=== PATIENT | male | born 1980 | race Two or more races ===

== ENCOUNTER 2016-12-08 19:08 | Emergency (ER) | payer MEDICARE, MEDICAID ==
[~2016-12-08] VITALS: Ht 165.1 cm; Wt 65.8 kg
[~2016-12-08 19:08] MED LIST: ARIP1TAB5 PO; ATOR10TA PO; CEL100T PO; DEXL60CA3 PO; ESZO1TAB9 PO; ITRA200T OR; LOSA50TA6 PO; METH750T3 PO; METO-158 PO; MYCO500T PO; ONDA4TAB5 PO; PANC3600 PO; POTA-167 PO; PRE1T PO; PRISTIQ ER PO; PROGRAF PO; RANI-229 PO; TACR0.5C3 PO; VALG450T PO; [UNRECOGNIZED DRUG - CODE] PO
[2016-12-08] MEDS ORDERED: ONDANSETRON HCL 4 MG/2 ML VIAL IV ONE (20:15)
[2016-12-08] MEDS ORDERED: MORPHINE SULFATE 4 MG/ML SYRG IV ONE (20:15)
[2016-12-08 23:20] VITALS: BP 126/72
== END 2016-12-09 00:20 | disposition home or self-care (01) ==
LOC: ER 19:14
DX: J01.90 Acute sinusitis, unspecified (principal); E11.9 Type 2 diabetes mellitus without complications; K21.9 Gastro-esophageal reflux disease without esophagitis; I10 Essential (primary) hypertension; Z98.890 Other specified postprocedural states
CPT/HCPCS: 70450; 96374; 96375; 99284; J2270; J2405

== ENCOUNTER 2017-11-20 10:20 | Emergency (ER) | payer MEDICARE, MEDICAID ==
[~2017-11-20] VITALS: Ht 165.1 cm; Wt 64.4 kg
[~2017-11-20 10:20] MED LIST changes: +DILT-10 PO; -[UNRECOGNIZED DRUG - CODE] PO
[2017-11-20 10:48] LABS: Urine WBC None Seen /hpf (0 - 3)
[2017-11-20 11:23] LABS: Urine Amorphous Crystal FEW /hpf (None Seen); Urine Bacteria NONE SEEN /hpf (None Seen); Urine Blood Negative /uL (Negative); Urine Specific Gravity 1.017 (1.001-1.035)
[2017-11-20 11:45] LABS: Basophils # (auto) 0.1 uL; Basophils % (auto) 0.6 % (0.0-2.0); Eosinophils # (auto) 0.3 uL; Eosinophils % (auto) 2.9 % (0.0-7.0); Hematocrit 40.2 % (41.0-53.0); Lymphocytes # (auto) 2.7 uL; Lymphocytes % (auto) 27.7 % (10.0-50.0); Mean Corpuscular Hgb Conc. 32.2 g/dL (32.0-36.0); Mean Corpuscular Volume 83.7 fL (80.0-100.0); Monocytes # (auto) 0.4 uL; Monocytes % (auto) 4.5 % (0.0-12.0); Neutrophils # (auto) 6.3 uL; Neutrophils % (auto) 64.3 % (37.0-80.0); Nucleated Red Blood Cells % 0.1 %; Platelet Count (auto) 288 10^3/uL (140-450); Red Blood Cells 4.81 10^6/uL (4.5-5.90); Red Cell Distribution Width 16.5 % (11.8-14.3); White Blood Cell 9.8 10^3/uL (4.4-10.8)
[2017-11-20 11:55] LABS: BUN/Creatinine Ratio 8.9; Bilirubin, Total 0.5 mg/dL (0.2-1.0); Calcium 8.9 mg/dL (8.5-10.1); Total Protein 7.3 g/dL (6.4-8.2)
[2017-11-20 14:10] VITALS: BP 127/85
[2017-11-20] MEDS ORDERED: NALBUPHINE HCL 10 MG/1ml INJECTION IV ONE (15:00)
== END 2017-11-20 16:23 | disposition home or self-care (01) ==
LOC: ER 10:20
DX: E84.9 Cystic fibrosis, unspecified (principal); R10.9 Unspecified abdominal pain; E11.9 Type 2 diabetes mellitus without complications; I10 Essential (primary) hypertension; K21.9 Gastro-esophageal reflux disease without esophagitis; E78.00 Pure hypercholesterolemia, unspecified; Z79.899 Other long term (current) drug therapy; Z94.2 Lung transplant status; Z88.8 Allergy status to other drugs, medicaments and biological substances; Z88.6 Allergy status to analgesic agent
CPT/HCPCS: 36415; 74176; 80053; 81001; 85025; 96374; 99285; J2300

== ENCOUNTER 2020-07-16 04:13 | Inpatient (IN) | payer MEDICARE, MEDICAID ==
[~2020-07-16] VITALS: Ht 165.1 cm; Wt 82.4 kg
[~2020-07-16 04:13] MED LIST changes: -DEXL60CA3 PO; +DEXL60CA4 PO; +LOSA-69 PO; -LOSA50TA6 PO; +ONDA-144 PO; -ONDA4TAB5 PO; -RANI-229 PO; +RANI300T PO
[2020-07-16] MEDS ORDERED: MORPHINE SULFATE 4 MG/ML SYR/VIAL IV ONE (05:45)
[2020-07-16] MEDS ORDERED: SODIUM CHLORIDE 0.9% 1,000 ML IV ONE ×2 (05:45→07:04)
[2020-07-16] MEDS ORDERED: ONDANSETRON HCL 4 MG/2 ML VIAL IV ONE (05:45)
[2020-07-16 05:52] LABS: Urine Bacteria FEW /hpf (None Seen); Urine Blood Negative /uL (Negative); Urine Specific Gravity 1.015 (1.001-1.035); Urine WBC 1 /hpf (0 - 3)
[2020-07-16] MEDS ORDERED: SODIUM CHLORIDE 0.9% 500 ML IVB ONE (07:04)
[2020-07-16] MEDS ORDERED: KETOROLAC TROMETH 30 MG/ML 1ML VIAL IV ONE (07:15)
[2020-07-16] MEDS ORDERED: PROMETHAZINE HCL 25 MG/ML 1ML IV PRN (07:15)
[2020-07-16 07:34] LABS: Basophils # (auto) 0.1 10 ^3/uL (0-0.2); Basophils % (auto) 0.4 % (0.0-2.0); Eosinophils # (auto) 0.2 10 ^3/uL (0-0.8); Eosinophils % (auto) 1.2 % (0.0-7.0); Hematocrit 45.7 % (41.0-53.0); Hemoglobin 15.6 g/dL (13.5-17.5); Lymphocytes # (auto) 2.8 10 ^3/uL (0.4-5.4); Mean Corpuscular Hemoglobin 31.9 pg (28.0-32.0); Mean Corpuscular Hgb Conc. 34.2 g/dL (32.0-36.0); Mean Corpuscular Volume 93.5 fL (80.0-100.0); Monocytes # (auto) 1.1 10 ^3/uL (0-1.3); Monocytes % (auto) 6.7 % (0.0-12.0); Neutrophils # (auto) 11.6 10 ^3/uL (1.6-8.6); Neutrophils % (auto) 73.7 % (37.0-80.0); Platelet Count (auto) 251 10^3/uL (140-450); Red Blood Cells 4.89 10^6/uL (4.5-5.90); White Blood Cell 15.7 10^3/uL (4.4-10.8)
[2020-07-16 07:35] LABS: Albumin 4.1 g/dL (3.4-5.0); BUN/Creatinine Ratio 18.3; Calcium 8.4 mg/dL (8.5-10.1); Potassium 4.3 mmol/L (3.5-5.1)
[2020-07-16 07:37] LABS: Bilirubin, Total 0.4 mg/dL (0.2-1.0)
[2020-07-16] MEDS ORDERED: LORazepam 2MG/ML-1ML VIAL IV ONE (08:15)
[2020-07-16 08:50] LABS: Lipase < 10 U/L (73-393); Magnesium 2.2 mg/dL (1.6-2.6)
[2020-07-16] MEDS ORDERED: NITROGLYCERIN 0.4 MG SL TAB SL PRN ×2 (14:00→15:45)
[2020-07-16] MEDS ORDERED: cefTRIAXone 1GM/50ML D5W 50 ML IV ONE (14:00)
[2020-07-16] MEDS ORDERED: MORPHINE SULF INJ 2 MG/ML SYRINGE 1ML IV PRN ×3 (14:00→15:45)
[2020-07-16] MEDS: cefTRIAXone 1GM/50ML D5W 50 ML IV SCH (14:59)
[2020-07-16] MEDS ORDERED: ALBUTEROL SULF 2.5 MG/0.5ML(0.5%) NEB SOLN NEB PRN (15:30)
[2020-07-16] MEDS ORDERED: IPRATROPIUM BROM 0.5 MG/2.5ML INH SOL NEB PRN (15:30)
[2020-07-16] MEDS ORDERED: SODIUM CHLORIDE 0.9% 1,000 ML IV SCH (15:34)
[2020-07-16] MEDS ORDERED: ALUM & MAG HYDROX-SIMETH LIQ(MAALOX) 30 ML PO PRN (15:45)
[2020-07-16] MEDS ORDERED: ONDANSETRON HCL 4 MG/2 ML VIAL IV PRN (15:45)
[2020-07-16] MEDS ORDERED: LORazepam 0.5 MG TAB PO PRN (15:45)
[2020-07-16] MEDS ORDERED: DOCUSATE SOD 100 MG CAP PO PRN (15:45)
[2020-07-16] MEDS ORDERED: HYDROcodone-ACET 5/325MG TAB PO PRN (15:45)
[2020-07-16] MEDS ORDERED: ACETAMINOPHEN 325 MG TAB PO PRN (15:45)
--- NOTE | 2020-07-16 15:50 | NUR ---
Telemetry admit from [facility] admitted to Telemetry unit after SBAR received. Patient oriented to PREMA GAYLE, RN primary RN, unit, room, bed, and unit policies regarding patient care and visiting hours. Patient now on continuous telemetry monitoring, tele box # 42. Patient weighed by bed scale and encouraged to call if they need anything. All questions and concerns addressed, patient verbalized understanding. VS: 110/77, 115, 95%, 97.9, 16. No complaints of pain or discomfort at this time.
[2020-07-16 16:00] VITALS: BP 110/77
[2020-07-16 16:07] LABS: Cholesterol 111 mg/dL (< 200)
[2020-07-16 16:14] LABS: HDL Cholesterol 47 mg/dL (40-59); LDL Cholesterol 55 mg/dL (< 100); Triglycerides 153 mg/dL (< 150)
--- NOTE | 2020-07-16 16:35 | NUR ---
UNABLE TO COMPLETE MEDICATION RECONCILIATION PATIENT IS UNABLE TO RECALL ALL MEDS AND PATIENT NEXT OF KIN, SHREE, DOES NOT SPEAK BULGARIAN, NOTIFIED THAT THE HOSPITAL NEEDS A LIST OF MEDICATIONS AND SHREE VERBALIZED UNDERSTANDING.
[2020-07-16 16:46] VITALS: BP 110/77
[2020-07-16] MEDS ORDERED: PRAV20TA3 PO (17:32)
[2020-07-16] MEDS ORDERED: TAMS0.4C36 PO (17:32)
[2020-07-16] MEDS ORDERED: RIBO100T8 PO (17:32)
[2020-07-16] MEDS ORDERED: BUDE1AER5 IN (17:32)
[2020-07-16] MEDS ORDERED: METO-169 PO (17:32)
[2020-07-16] MEDS ORDERED: FAMO-12 PO (17:32)
[2020-07-16] MEDS ORDERED: COEN400C8 OR (17:32)
[2020-07-16] MEDS ORDERED: POLY33504 PO (17:32)
[2020-07-16] MEDS ORDERED: PLEC3TAB PO (17:32)
[2020-07-16] MEDS ORDERED: VILA40TA PO (17:32)
[2020-07-16] MEDS ORDERED: AMIT25TA9 PO (17:32)
[2020-07-16] MEDS ORDERED: CYA100I PO (17:32)
[2020-07-16] MEDS ORDERED: FLUT1SPR5 (17:32)
[2020-07-16] MEDS ORDERED: IPRAAER6 IN (17:32)
[2020-07-16] MEDS ORDERED: MEMA10TA PO (17:32)
[2020-07-16] MEDS ORDERED: MONT5CHW17 PO (17:32)
[2020-07-16] MEDS ORDERED: DENO60SO SC (17:32)
[2020-07-16] MEDS ORDERED: PANC1CAP PO (17:32)
[2020-07-16] MEDS ORDERED: OMEG1400 PO (17:32)
[2020-07-16] MEDS ORDERED: SPIR50TA5 PO (17:32)
[2020-07-16] MEDS ORDERED: BACL10TA PO (17:32)
[2020-07-16] MEDS ORDERED: MULT1CAP32 PO (17:32)
[2020-07-16] MEDS ORDERED: HYDR-4833 PO (17:32)
[2020-07-16] MEDS ORDERED: MAGN400C2 PO (17:32)
[2020-07-16] MEDS ORDERED: SULF400T11 PO (17:32)
[2020-07-16] MEDS ORDERED: AZIT250T8 PO (17:32)
[2020-07-16] MEDS: FUROSEMIDE 20 MG/2 ML VIAL IV SCH (17:39)
[2020-07-16] MEDS: TAMSULOSIN HYDROCHLORIDE 0.4 MG CAP PO SCH (17:39)
[2020-07-16] MEDS: PANCREATIC ENZYMES 4200 UNIT CAP PO SCH (17:39)
--- NOTE | 2020-07-16 19:14 | NUR ---
Opening Shift Note Assumed care of patient, awake, and alert to self and location. Patient on room air with even and unlabored respirations, no S/S of distress/SOB or pain. Patient able to turn in bed independently, bed in lowest locked position, side rails up x2, and call light within reach. Instructed on POC and to call for assist PRN, will continue to monitor for changes Q1hr and PRN.
[2020-07-16 21:06] VITALS: BP 110/77
[2020-07-16 22:00] VITALS: BP 106/83
[2020-07-16] MEDS: MYCOPHENOLATE 500 MG TAB PO SCH (22:18)
[2020-07-16] MEDS: VENLAFAXINE HCL 37.5mg XR cap PO SCH (22:19)
[2020-07-16] MEDS: BACLOFEN 10 MG TAB PO SCH (22:20)
[2020-07-16] MEDS: AMITRIPTYLINE HCL 25 MG TAB PO SCH (22:20)
[2020-07-16] MEDS: ATORVASTATIN 20 MG TAB PO SCH (22:20)
[2020-07-16] MEDS: TACROLIMUS 0.5 MG CAP PO SCH (22:21)
[2020-07-16] MEDS: MONTELUKAST SODIUM 10 MG TAB PO SCH (22:22)
[2020-07-17 05:00] VITALS: BP 124/94
[2020-07-17] MEDS: BACLOFEN 10 MG TAB PO SCH ×3 (06:27→21:30)
[2020-07-17] MEDS: FUROSEMIDE 20 MG/2 ML VIAL IV SCH ×2 (06:45→17:46)
[2020-07-17 08:00] VITALS: BP 101/58
[2020-07-17] MEDS: PANCREATIC ENZYMES 4200 UNIT CAP PO SCH ×3 (08:26→17:46)
[2020-07-17 08:53] VITALS: BP 101/58
[2020-07-17] MEDS: SPIRONOLACTONE 25 MG TAB PO SCH (10:00)
[2020-07-17] MEDS: METOPROLOL SUCCINATE XL 50 MG TAB PO SCH (10:00)
[2020-07-17] MEDS ORDERED: ENOXAPARIN SOD 40 MG/0.4 ML SYRINGE SC SCH (10:00)
[2020-07-17] MEDS: amLODIPine BESYLATE 5 MG TAB PO SCH (10:00)
--- NOTE | 2020-07-17 10:00 | NUR ---
Dr Sultana on unit Addendum: 07/17/20 at 1107 by PREMA GAYLE RN RN Orders received and carried out
[2020-07-17] MEDS ORDERED: cefTRIAXone 1GM/50ML D5W 50 ML IV ONE (10:15)
[2020-07-17] MEDS: predniSONE 5 MG TAB PO SCH (10:20)
[2020-07-17] MEDS: VENLAFAXINE HCL 37.5mg XR cap PO SCH ×2 (10:21→21:30)
[2020-07-17] MEDS: MYCOPHENOLATE 500 MG TAB PO SCH ×2 (10:21→21:29)
[2020-07-17] MEDS: FAMOTIDINE 20 MG TAB PO SCH (10:22)
[2020-07-17] MEDS: TACROLIMUS 0.5 MG CAP PO SCH ×2 (10:22→21:31)
[2020-07-17] MEDS: ITRACONAZOLE 100 MG CAP PO SCH (10:22)
[2020-07-17] MEDS: SODIUM CHLORIDE 0.9% 1,000 ML IV SCH ×2 (10:27→17:56)
--- NOTE | 2020-07-17 11:10 | NUR ---
Urology Dr Nelson Orders received from Dr Nelson and carried out
[2020-07-17 11:35] LABS: Urine Bacteria NONE SEEN /hpf (None Seen); Urine Blood 1+ /uL (Negative); Urine Mucus FEW (None Seen); Urine Specific Gravity 1.007 (1.001-1.035); Urine WBC <1 /hpf (0 - 3)
[2020-07-17 11:37] LABS: Alcohol, Urine < 3.0 mg/dL (0-10); Amphetamine Screen, Urine NEGATIVE (NEGATIVE); Barbiturate Scree,Urine NEGATIVE (NEGATIVE); Benzodiazephine Screen, Urine NEGATIVE (NEGATIVE); Cannabinoid Screen, Urine NEGATIVE (NEGATIVE); Cocaine Screen, Urine NEGATIVE (NEGATIVE); Opiate Scree,Urine NEGATIVE (NEGATIVE); Phencyclidine Screen, Urine NEGATIVE (NEGATIVE)
--- NOTE | 2020-07-17 12:30 | NUR ---
Patient informed me he does not want lithotripsy procedure. Dr Nelson and Dr Sultana have been notified. No orders at this time.
[2020-07-17 13:00] VITALS: BP 121/71
[2020-07-17 16:54] VITALS: BP 130/71
[2020-07-17] MEDS: TAMSULOSIN HYDROCHLORIDE 0.4 MG CAP PO SCH (17:46)
--- NOTE | 2020-07-17 18:25 | NUR ---
PT ASSESSED FOR PRN MED NEB TX. SPO2 95% ON RA, HR 103. PT DENIES ANY RESPIRATORY DISTRESS. NO TX INDICATED. WILL CONTINUE TO MONITOR.
--- NOTE | 2020-07-17 19:35 | NUR ---
OPENING NOTE Received report from day shift RN. Patient is A&O X's 4 with no s/s of distress and reports no pain. Educated patient on POC and to use call light when in need of any assistance. Patient verbalized understanding. Bed is in lowest/locked position with side rails up X's 2 and call light is within reach of patient. IV to left foot intact and patent/easily flushed and not infusing fluids as ordered. Will continue care.
--- NOTE | 2020-07-17 20:41 | NUR ---
SPOKE WITH MD CABRERA Informed him that patient refusing to have procedure tomorrow because patient stated that his doctor in [place] does not want him to have it. MD Cabrera said to cancel the orders for it.
[2020-07-17] MEDS: AMITRIPTYLINE HCL 25 MG TAB PO SCH (21:30)
[2020-07-17] MEDS: ATORVASTATIN 20 MG TAB PO SCH (21:30)
[2020-07-17] MEDS: MONTELUKAST SODIUM 10 MG TAB PO SCH (21:31)
[2020-07-17 22:00] VITALS: BP 117/64
[2020-07-18 05:00] VITALS: BP 118/69
[2020-07-18] MEDS: FUROSEMIDE 20 MG/2 ML VIAL IV SCH (05:21)
[2020-07-18] MEDS: SODIUM CHLORIDE 0.9% 1,000 ML IV SCH ×2 (05:21→09:39)
[2020-07-18] MEDS: BACLOFEN 10 MG TAB PO SCH (05:21)
--- NOTE | 2020-07-18 05:50 | NUR ---
Respiratory note: ASSESSED PT FOR PRN TX PT WAS ASLEEP, NO RESP DISTRESS NOTED. HR 100, RR 16, SPO2 96% ON ROOM AIR. BS ARE CLEAR AND DIMINISHED, NO INDICATION FOR TX AT THIS TIME. PT KNOWS TO HAVE RT PAGED IF TX IS NEEDED.
--- NOTE | 2020-07-18 07:25 | NUR ---
END OF SHIFT NOTE Gave report to day shift RN. Patient resting in bed with no s/s of distress.
[2020-07-18] MEDS: cefTRIAXone 1GM/50ML D5W 50 ML IV SCH (07:56)
[2020-07-18] MEDS: PANCREATIC ENZYMES 4200 UNIT CAP PO SCH ×4 (07:56→12:07)
[2020-07-18 09:00] VITALS: BP 123/73
[2020-07-18] MEDS: predniSONE 5 MG TAB PO SCH (09:28)
[2020-07-18] MEDS: METOPROLOL SUCCINATE XL 50 MG TAB PO SCH (09:29)
[2020-07-18] MEDS: amLODIPine BESYLATE 5 MG TAB PO SCH (09:29)
[2020-07-18] MEDS: VENLAFAXINE HCL 37.5mg XR cap PO SCH (09:29)
[2020-07-18] MEDS: SPIRONOLACTONE 25 MG TAB PO SCH (09:29)
[2020-07-18] MEDS: TACROLIMUS 0.5 MG CAP PO SCH (09:30)
[2020-07-18] MEDS: FAMOTIDINE 20 MG TAB PO SCH (09:30)
[2020-07-18] MEDS: ITRACONAZOLE 100 MG CAP PO SCH (09:31)
[2020-07-18] MEDS: MYCOPHENOLATE 500 MG TAB PO SCH (09:31)
[2020-07-18 12:59] VITALS: BP 121/86
[2020-07-18 13:00] VITALS: BP 121/86
--- NOTE | 2020-07-18 14:46 | NUR ---
DISCHARGE INSTRUCTIONS GIVEN TO PT. VERBALIZED UNDERSTANDING. ALL APPROPRIATE PAPERWORK SIGNED, IV AND TELE BOX REMOVED. PT DISCHARGED HOME WITH FAMILY.
== END 2020-07-18 14:30 | disposition home or self-care (01) | DRG 690 ==
LOC: ER 04:13 → TELE 04:14 → TELE-CENTR 15:30
PROVIDERS: ADMIT Hospitalist; ATTEND Family Medicine
DX: N10 Acute pyelonephritis (principal); N20.2 Calculus of kidney with calculus of ureter; K86.1 Other chronic pancreatitis; Z94.2 Lung transplant status; N17.0 Acute kidney failure with tubular necrosis; E78.5 Hyperlipidemia, unspecified; G47.9 Sleep disorder, unspecified; K29.70 Gastritis, unspecified, without bleeding; K40.20 Bilateral inguinal hernia, without obstruction or gangrene, not specified as recurrent; I12.9 Hypertensive chronic kidney disease with stage 1 through stage 4 chronic kidney disease, or unspecified chronic kidney disease; M19.90 Unspecified osteoarthritis, unspecified site; N40.0 Benign prostatic hyperplasia without lower urinary tract symptoms; E11.22 Type 2 diabetes mellitus with diabetic chronic kidney disease; E78.00 Pure hypercholesterolemia, unspecified; F31.9 Bipolar disorder, unspecified; R33.9 Retention of urine, unspecified; E66.9 Obesity, unspecified; K21.9 Gastro-esophageal reflux disease without esophagitis; G47.00 Insomnia, unspecified; N18.9 Chronic kidney disease, unspecified; Z87.442 Personal history of urinary calculi; Z88.5 Allergy status to narcotic agent; Z88.6 Allergy status to analgesic agent; Z91.041 Radiographic dye allergy status; Z68.30 Body mass index [BMI] 30.0-30.9, adult; Z20.828 Contact with and (suspected) exposure to other viral communicable diseases; Z53.9 Procedure and treatment not carried out, unspecified reason
CPT/HCPCS: 36415; 71045; 74176; 80053; 80061; 80307; 81001; 82962; 83036; 83690; 83735; 84484; 85025; 85379; 87040; 87086; 93005; 93306; G0378; J0696; J1885; J2405; J7517

== ENCOUNTER 2022-04-13 03:41 | Emergency (ER) | payer BC, MEDICAID ==
[~2022-04-13] VITALS: Ht 152.4 cm; Wt 63.5 kg
[~2022-04-13 03:41] MED LIST changes: +AMIT25TA12 PO; -ARIP1TAB5 PO; -ATOR10TA PO; +AZIT250T8 PO; +BACL10TA PO; +BUDE1AER5 IN; -CEL100T PO; +COEN400C8 OR; +CYA100I PO; +DENO60SO SC; -DILT-10 PO; -ESZO1TAB9 PO; +FAMO-12 PO; +FLUT1SPR5; +HYDR-4833 PO; +IPRAAER6 IN; -LOSA-69 PO; +MAGN400C2 PO; +MEMA10TA PO; -METH750T3 PO; -METO-158 PO; +METO-289 PO; +MONT5CHW23 PO; +MULT1CAP32 PO; +OMEG1400 PO; -ONDA-144 PO; +PANC1CAP PO; -PANC3600 PO; +PLEC3TAB2 PO; +POLY33504 PO; -POTA-167 PO; +PRAV20TA3 PO; -PRISTIQ ER PO; -PROGRAF PO; -RANI300T PO; +RIBO100T8 PO; +SPIR50TA5 PO; +SULF400T11 PO; +TAMS0.4C36 PO; +VILA40TA PO
[2022-04-13 05:05] LABS: Basophils # (auto) 0.1 10 ^3/uL (0-0.2); Basophils % (auto) 0.4 % (0.0-2.0); Eosinophils # (auto) 0.3 10 ^3/uL (0-0.8); Eosinophils % (auto) 2.1 % (0.0-7.0); Hemoglobin 14.6 g/dL (13.5-17.5); Lymphocytes # (auto) 2.4 10 ^3/uL (0.4-5.4); Lymphocytes % (auto) 16.6 % (10.0-50.0); Mean Corpuscular Hemoglobin 31.9 pg (28.0-32.0); Mean Corpuscular Hgb Conc. 33.2 g/dL (32.0-36.0); Monocytes # (auto) 0.7 10 ^3/uL (0-1.3); Monocytes % (auto) 4.9 % (0.0-12.0); Neutrophils # (auto) 10.8 10 ^3/uL (1.6-8.6); Red Blood Cells 4.58 10^6/uL (4.5-5.90); Red Cell Distribution Width 14.1 % (11.8-14.3); White Blood Cell 14.2 10^3/uL (4.4-10.8)
[2022-04-13 05:23] LABS: Albumin 4.4 g/dL (3.4-5.0); BUN/Creatinine Ratio 10.1; Calcium 9.8 mg/dL (8.5-10.1); Potassium 4.3 mmol/L (3.5-5.1)
[2022-04-13 05:26] LABS: Bilirubin, Total 0.9 mg/dL (0.2-1.0); Total Protein 8.1 g/dL (6.4-8.2)
[2022-04-13] MEDS ORDERED: HYDROmorphone HCL 2 MG/ML VL/or syr IV ONE (06:45)
[2022-04-13] MEDS ORDERED: ONDANSETRON HCL 4 MG/2 ML VIAL IV ONE (07:00)
[2022-04-13] MEDS ORDERED: ONDANSETRON HCL 4 MG/2 ML VIAL ONE (07:03)
[2022-04-13] MEDS ORDERED: CEPH-509 PO (07:44)
[2022-04-13 08:04] VITALS: BP 151/95
== END 2022-04-13 08:16 | disposition home or self-care (01) ==
LOC: ER 03:41
DX: D72.829 Elevated white blood cell count, unspecified (principal); G89.18 Other acute postprocedural pain; E11.9 Type 2 diabetes mellitus without complications; K21.9 Gastro-esophageal reflux disease without esophagitis; E78.5 Hyperlipidemia, unspecified; I10 Essential (primary) hypertension
CPT/HCPCS: 36415; 74176; 80053; 83690; 85025; 96374; 96375; 99284; J1170; J2405